=== PATIENT | female | born 1965 | race Caucasian/White ===

== ENCOUNTER 2018-05-07 07:31 | Day surgery (SDC) | payer MEDICAID ==
[2018-04-29 11:28] LABS: BASOPHILS % (AUTO) 0.4 % (0-1); EOSINOPHILS # (AUTO) 0.3 X10'3 (0-0.9); EOSINOPHILS % (AUTO) 4.5 % (0-6); LYMPHOCYTES # (AUTO) 2.3 X10'3 (1.1-4.8); LYMPHOCYTES % (AUTO) 34.6 % (21-51); MEAN CORPUSCULAR HEMOGLOBIN 31.5 PG (27.0-31.0); MEAN CORPUSCULAR HGB CONC 34.8 % (33.0-36.5); MEAN CORPUSCULAR VOLUME 90.3 FL (78-98); MEAN PLATELET VOLUME 8.6 FL (7.4-10.4); MONOCYTES # (AUTO) 0.4 X10'3 (0-0.9); MONOCYTES % (AUTO) 6.5 % (2-12); NEUTROPHILS # (AUTO) 3.6 X10'3 (1.8-7.7); PRE OP HEMATOCRIT 40.2 % (35.0-45.0); PRE OP PLATELET COUNT 266 X10'3 (140-440); RED BLOOD COUNT 4.45 X10'6 (4.20-5.60)
[2018-04-29 11:43] LABS: ALBUMIN 3.5 G/DL (3.4-5.0); ALBUMIN/GLOBULIN RATIO 1.1 (1.1-1.5); ALKALINE PHOSPHATASE 74 IU/L (46-116); BLOOD UREA NITROGEN 11 MG/DL (7-18); BUN/CREATININE RATIO 11.5 (6.6-38.0); CALCIUM 8.8 MG/DL (8.5-10.1); CHLORIDE 103 MMOL/L (99-107); CREATININE 0.96 MG/DL (0.40-0.90); PRE OP ALT 25 U/L (30-65); PRE OP ANION GAP 8 (8-16); PRE OP AST 20 U/L (10-37); PRE OP BILIRUB, TOTAL 0.5 MG/DL (0.0-1.0); PRE OP GLUCOSE 107 MG/DL (70-104); PRE OP SODIUM 139 MMOL/L (135-145); TOTAL CARBON DIOXIDE 28.1 MMOL/L (24-32); TOTAL PROTEIN 6.8 G/DL (6.4-8.2); eGFR 61 ML/MIN
[~2018-05-07] VITALS: Ht 165.1 cm; Wt 93.0 kg
[2018-05-07] VITALS (12 sets, daily range): BP systolic 101–140; BP diastolic 67–86
[~2018-05-07 07:31] MED LIST: CYCL-1 PO; Cefazolin 2GM/50ML dext iso,osmotic IVPB IV ONE; DIPH50CA46 PO; HYDR-565 PO; clindamycin 600mg/D5W 50ml 50 ML IV ONE; famotidine 20mg tablet PO ONE; ringers solution, lacted 1,000 ML IV SCH
[2018-05-07] MEDS ORDERED: LIDOcaine 1% (10mg/ml) 2ml vial ONE (07:59)
[2018-05-07] MEDS ORDERED: ringers solution, lacted 1,000 ML IV SCH (08:56)
[2018-05-07] MEDS ORDERED: meperidine/PF 25mg/ml syringe IV PRN ×3 (09:00)
[2018-05-07] MEDS ORDERED: ondansetron/PF 4mg/2ml inj IV PRN (09:00)
[2018-05-07] MEDS ORDERED: proCHLORperazine 10 MG/2 ml inj IV PRN (09:00)
[2018-05-07] MEDS ORDERED: morphine 4 MG/ML inj SYRINge IV PRN ×2 (09:00)
[2018-05-07] MEDS ORDERED: dexamethasone sod phosphate 10mg/ml inj ONE (10:33)
[2018-05-07] MEDS ORDERED: sevoflurane 250ml liquid IH ONE (10:33)
[2018-05-07] MEDS ORDERED: midazolam 2 mg/2 ml injection ONE (10:40)
[2018-05-07] MEDS ORDERED: fentaNYL /PF 50mcg/ml 5ml ampule ONE (10:41)
[2018-05-07] MEDS ORDERED: LIDOcaine 2% (20mg/ml) 5ml vial ONE (10:43)
[2018-05-07] MEDS ORDERED: propofol inj 20 ML IV ONE (10:43)
[2018-05-07] MEDS ORDERED: ROPIVAcaine 0.5% (5mg/ml) 30ml vial ONE (10:45)
[2018-05-07] MEDS ORDERED: ondansetron/PF 4mg/2ml inj ONE (10:48)
[2018-05-07] MEDS ORDERED: ketorolac trometh. 30mg/ml inj. ONE (10:48)
[2018-05-07] MEDS ORDERED: BUPIVAcaine/PF 2.5mg/ml (0.25%) 10ml vial ONE (11:37)
[2018-05-07] MEDS ORDERED: triamcinolone acetonide 40mg/ml inj ONE (11:45)
== END 2018-05-07 13:37 | disposition home or self-care (01) ==
LOC: PAS 07:31
PROVIDERS: ATTEND Orthopaedic Surgery
DX: M23.222 Derangement of posterior horn of medial meniscus due to old tear or injury, left knee (principal); M23.221 Derangement of posterior horn of medial meniscus due to old tear or injury, right knee; M23.252 Derangement of posterior horn of lateral meniscus due to old tear or injury, left knee; M23.261 Derangement of other lateral meniscus due to old tear or injury, right knee; M22.42 Chondromalacia patellae, left knee; M22.41 Chondromalacia patellae, right knee; M25.862 Other specified joint disorders, left knee; M25.861 Other specified joint disorders, right knee; M17.0 Bilateral primary osteoarthritis of knee; E66.9 Obesity, unspecified; J45.998 Other asthma; K21.9 Gastro-esophageal reflux disease without esophagitis; F17.210 Nicotine dependence, cigarettes, uncomplicated; G89.29 Other chronic pain; Z79.891 Long term (current) use of opiate analgesic; Z91.040 Latex allergy status; Z90.49 Acquired absence of other specified parts of digestive tract; Z79.2 Long term (current) use of antibiotics; Z79.1 Long term (current) use of non-steroidal anti-inflammatories (NSAID); Z68.34 Body mass index [BMI] 34.0-34.9, adult; Z79.899 Other long term (current) drug therapy; Z98.890 Other specified postprocedural states; Z83.6 Family history of other diseases of the respiratory system
CPT/HCPCS: 29873; 29879; 29880; 36415; 80053; 85025; 93005; A6449; J0690; J0780; J1100; J1885; J2001; J2175; J2250; J2405; J2704; J2795; J3010; J3301; J3490; J7030; J7120; A6250; A7000